=== PATIENT | male | born 1985 | race Caucasian/White ===

== ENCOUNTER 2017-10-13 10:39 | Emergency (ER) | payer OTHER ==
[2017-10-13] MEDS ORDERED: ACETAMINOPHEN 325 MG TABLET PO ONE (10:45)
[2017-10-13 10:50] VITALS: BP 122/80
--- NOTE | 2017-10-13 11:18 | RADIOLOGY REPORT (SQ) ---
EXAM DESCRIPTION: ANKLE RIGHT COMPLETE COMPLETED DATE/TIME: 10/13/2017 11:10 am REASON FOR STUDY: injury COMPARISON: 10/23/2014 NUMBER OF VIEWS: Three views. TECHNIQUE: AP, lateral, and oblique radiographic images acquired of the right ankle. LIMITATIONS: None. FINDINGS: MINERALIZATION: Normal. BONES: No acute fracture or dislocation. No worrisome bone lesions. JOINTS: No effusions. SOFT TISSUES: There is soft tissue swelling laterally. OTHER: No other significant finding. IMPRESSION: Soft tissue swelling laterally. No fracture. TECHNICAL DOCUMENTATION: JOB ID: [id number] [employer]- All Rights Reserved Reading location - IP/workstation name: [facility]
[2017-10-13] MEDS ORDERED: IBUPROFEN 800 MG TABLET PO ONE (11:35)
--- NOTE | 2017-10-13 11:35 | ER Document Report ---
ED Extremity Problem, Lower - General Chief Complaint: Ankle Injury Stated Complaint: ANKLE INJURY Time Seen by Provider: 10/13/17 11:17 Mode of Arrival: Wheelchair Information source: Patient Notes: 32-year-old male presented to ED for complaint of right ankle injury. He states he was jumping off a dump truck yesterday when he rolled his ankle outward. He states she has been elevating and icing it and taken Tylenol with no relief. He states he has not been able to bear weight on this foot. He states he has to hop to get around. Patient had a Eloy wrap on when he came into the emergency room. TRAVEL OUTSIDE OF THE [place] IN LAST 30 DAYS: No - HPI Patient complains to provider of: Injury, Pain, Swelling Location: Ankle - Right Occurred: Yesterday Where: Outdoors, Public place Onset/Duration: Sudden, Persistent Quality of pain: Sharp, Throbbing Severity: Moderate Pain Level: 4 Context: Wearing shoes Recent injury: Yes Associated symptoms: Painful ambulation, Unable to bear weight Exacerbated by: Hanging down, Movement, Walking Relieved by: Elevation, Ice, Rest - Related Data Allergies/Adverse Reactions: amoxicillin [Amoxicillin] Allergy (Verified 10/13/17 10:42) diphenhydramine HCl [From Benadryl] Allergy (Verified 10/13/17 10:42) Past Medical History - General Information source: Patient - Social History Smoking Status: Never Smoker Chew tobacco use (# tins/day): No Frequency of alcohol use: None Drug Abuse: None Family History: DM, Hypertension, Malignancy Patient has suicidal ideation: No Patient has homicidal ideation: No - Past Medical History Cardiac Medical History: Reports: None Pulmonary Medical History: Reports: None EENT Medical History: Reports: None Neurological Medical History: Reports: None Endocrine Medical History: Reports: None Renal/ Medical History: Reports: None Malignancy Medical History: Reports None GI Medical History: Reports: Hx Gastroesophageal Reflux Disease, Hx Ulcer Musculoskeletal Medical History: Reports None Skin Medical History: Reports Hx Cellulitis - Abscesses in the past Psychiatric Medical History: Reports: Hx Attention Deficit Hyperactivity Disorder, Hx Depression Traumatic Medical History: Reports: None Infectious Medical History: Reports: None Past Surgical History: Reports: Hx Abdominal Surgery - L inguinal herniorrhaphy , Hx Inguinal Hernia, Hx Orthopedic Surgery - chin - Immunizations Immunizations up to date: Yes Hx Diphtheria, Pertussis, Tetanus Vaccination: Yes Review of Systems - Review of Systems Constitutional: No symptoms reported EENT: No symptoms reported Cardiovascular: No symptoms reported Respiratory: No symptoms reported Gastrointestinal: No symptoms reported Genitourinary: No symptoms reported Male Genitourinary: No symptoms reported Musculoskeletal: Ankle swelling - Pain swelling Skin: No symptoms reported Hematologic/Lymphatic: No symptoms reported Neurological/Psychological: No symptoms reported -: Yes All other systems reviewed and negative Physical Exam - Vital signs Vitals: Temp Pulse Resp BP Pulse Ox 98.9 F 70 16 122/80 97 10/13/17 10:48 10/13/17 10:48 10/13/17 10:48 10/13/17 10:48 10/13/17 10:48 Interpretation: Normal - General General appearance: Appears well, Alert - HEENT Head: Normocephalic, Atraumatic Eyes: Normal Pupils: PERRL - Respiratory Respiratory status: No respiratory distress Chest status: Nontender Breath sounds: Normal Chest palpation: Normal - Cardiovascular Rhythm: Regular Heart sounds: Normal auscultation Murmur: No - Abdominal Inspection: Normal Distension: No distension Bowel sounds: Normal Tenderness: Nontender Organomegaly: No organomegaly - Back Back: Normal, Nontender - Extremities General upper extremity: Normal inspection, Nontender, Normal color, Normal ROM , Normal temperature General lower extremity: Normal temperature. No: Ina's sign Ankle: Tender, Ecchymosis, Edema, Unable to bear weight. No: Abrasion, Deformity, Instability, Laceration, Limited ROM, Positive Reyes's test Foot: Normal, Nontender - Neurological Neuro grossly intact: Yes Cognition: Normal Orientation: AAOx4 [place] Coma Scale Eye Opening: Spontaneous Wilfred Coma Scale Verbal: Oriented Wilfred Coma Scale Motor: Obeys Commands [place] Coma Scale Total: 15 Speech: Normal Motor strength normal: LUE, RUE, LLE, RLE Sensory: Normal - Psychological Associated symptoms: Normal affect, Normal mood - Skin Skin Temperature: Warm Skin Moisture: Dry Skin Color: Normal Course - Re-evaluation Re-evalutation: 10/13/17 12:17 Eloy wrap was removed ankle was examined. Lateral and medial aspect of ankle is very tender to touch and swelling noted. Mild edema to the foot but no tenderness to palpation. X-ray was negative for any bony deformities. X-ray was discussed with patient and written report given to patient. Eloy wrap was reapplied to the ankle in a [id number] and stirrup splint was applied. Patient was provided with crutches and instructed to follow-up with orthopedics. Patient was treated with ibuprofen and given instructions on elevation and ice of the ankle. - Vital Signs Vital signs: Temp Pulse Resp BP Pulse Ox 98.9 F 70 16 122/80 97 10/13/17 10:48 10/13/17 10:48 10/13/17 10:48 10/13/17 10:48 10/13/17 10:48 - Diagnostic Test Radiology reviewed: Image reviewed, Reports reviewed Discharge - Discharge Clinical Impression: Right ankle sprain Qualifiers: Encounter type: initial encounter Involved ligament of ankle: unspecified ligament Qualified Code(s): S93.401A - Sprain of unspecified ligament of right ankle, initial encounter Condition: Stable Disposition: HOME, SELF-CARE Additional Instructions: SPRAINED ANKLE: Your sprained ankle results from stretching or tearing of the ligaments which support the ankle. This usually results from twisting the foot inward and under. The ligaments will require time and protection in order to heal properly. Many ankle sprains are quite disabling, and should be taken seriously. The usual treatment for an ankle sprain is cold packs; protection with tape , splints, or wraps; elevation; and staying off the ankle for at least a day. As the ankle improves, you can walk IF it's not painful to bear weight. Sports are best postponed until healing is complete. More serious sprains usually require strengthening exercises after early healing. Your physician has assessed the seriousness of the ligament injury to your ankle. However, the treatment may change, depending on how your ankle progresses. If further exams were recommended, it is important that you follow through. Call the doctor if your foot becomes numb, painful, or severely swollen. ANKLE STIRRUP SPLINT: You are to use an ankle brace called a stirrup splint. This type of brace allows you to place greater stresses on the ankle without risk of re-injury, and is often used for more severe ankle injuries such as avulsion fractures and ligament ruptures. The splint can be worn over a sock or tape. For proper support, wear the splint with a shoe over it. It's important that the splint fit properly. Adjust the heel tension, if needed. If your splint has air bladders, peel back the bottom of each air bladder, then move the Velcro attachment of the heel strap up or down. Air bladder pressure can be adjusted by pulling up the valve at the top, threading the air tube down into the main bladder, then blowing air into the bladder or squeezing it out. The two sides of the stirrup can be moved forward or back on your ankle by changing the attachment of the main straps. If you are unable to use the ankle comfortably in the splint, return for re -evaluation. ELOY WRAP: A compression dressing (eloy wrap) has been placed. This helps hold the area still. It limits swelling and internal bleeding. The wrap should be comfortably snug -- not tight. You should feel a sense of pressure, but not severe pain under the wrap. Unless the physician tells you otherwise, you can adjust the wrap for comfort. If the wrap causes symptoms suggesting it's too tight -- uncomfortable pressure, swelling or discoloration beyond the wrap, numbness, or severe pain - - you must loosen the wrap. If these symptoms don't resolve promptly, return for re-evaluation. USE OF CRUTCHES: The doctor has recommended that you not bear weight at this time. You will need to use crutches. Adjust the crutches so the tops come to about two inches under the armpit while you are standing upright. Use your hands -- not your armpits -- to support your weight. To get into a chair, support yourself with one crutch on the injured side. Hold the chair with the other hand, then lower yourself while putting all your weight on the good leg. Going up stairs is `good leg up, step up, then bring up crutches and bad leg.' Down stairs is `bad leg and crutches down, then bring good leg down.' If you develop numbness or swelling in an arm or hand, you are using the crutches incorrectly. Return if you are having any problems with the crutches. ICE & ELEVATION: Apply ice packs frequently against the painful area. Many different schedules are recommended, such as "20 minutes on, 20 minutes off" or "one hour ice, two hours rest." If you need to work, you may need to go longer between ice treatments. You should plan to have the area ice packed AT LEAST one- fourth of the time. The ice should be applied over the wrap, tape, or splint, or over a layer of cloth -- not directly against the skin. Some ice bags have a built-in cloth and can be put directly on the skin. Your injured part should be elevated as much as possible over the next 48 hours. Try to keep the injury above the level of the heart. Avoid use of the injured area. Elevation and rest will decrease the swelling. USE OF [id number] IBUPROFEN: Ibuprofen (Advil, Nuprin, Medipren, Motrin IB) is a medication for fever and pain control. In addition, it has anti- inflammatory effects which may be beneficial, especially in the treatment of injuries. It's best to take ibuprofen with food. Persons with ulcer disease or allergy to aspirin should notify their physician of this before taking ibuprofen. Ibuprofen can be given every four to six hours, for a total of four doses daily. Age Pain or fever dose Antiinflammatory dose 6-8 yr 200 mg (1 tab) 200 mg (1 tab) 9-11 yr 200 mg (1 tab) 200-400 mg (1-2 tab) 11-14 yr 200-400 mg (1-2 tab) 400 mg (2 tab) 15-adult 400 mg (2 tab) 600 mg (3 tab) FOLLOW-UP CARE: If you have been referred to a physician for follow-up care, call the physician s office for an appointment as you were instructed or within the next two days. If you experience worsening or a significant change in your symptoms, notify the physician immediately or return to the Emergency Department at any time for re-evaluation. Forms: Return to Work Referrals: KIMBERLY GREEN MD [ACTIVE STAFF] - Follow up as needed
== END 2017-10-13 11:48 | disposition home or self-care (01) ==
LOC: ER 10:39
DX: S93.401A Sprain of unspecified ligament of right ankle, initial encounter (principal); X50.1XXA Overexertion from prolonged static or awkward postures, initial encounter
CPT/HCPCS: 99283; 73610; L1902

== ENCOUNTER 2017-12-28 12:42 | Emergency (ER) | payer SELFPAY ==
[2017-12-28 13:15] VITALS: BP 102/60
[2017-12-28] MEDS ORDERED: LIDOCAINE 1% INJ-PF (10 MG/ML) 30 ML SDV INJ ONE (14:17)
--- NOTE | 2017-12-28 14:19 | ER Document Report ---
ED Medical Screen (RME) - General Chief Complaint: Abscess Stated Complaint: POSSIBLE ABSCESS Time Seen by Provider: 12/28/17 14:14 Notes: 32 years old male presents today with left perineal abscess, with swelling redness and tenderness. TRAVEL OUTSIDE OF THE [place] IN LAST 30 DAYS: No - Related Data Allergies/Adverse Reactions: amoxicillin [Amoxicillin] Allergy (Verified 12/28/17 13:08) diphenhydramine HCl [From Benadryl] Allergy (Verified 12/28/17 13:08) Past Medical History - Social History Chew tobacco use (# tins/day): No Frequency of alcohol use: None Drug Abuse: None Renal/ Medical History: Denies: Hx Peritoneal Dialysis GI Medical History: Reports: Hx Gastroesophageal Reflux Disease, Hx Ulcer Skin Medical History: Reports Hx Cellulitis - Abscesses in the past Psychiatric Medical History: Reports: Hx Attention Deficit Hyperactivity Disorder, Hx Depression Past Surgical History: Reports: Hx Abdominal Surgery - L inguinal herniorrhaphy , Hx Inguinal Hernia, Hx Orthopedic Surgery - chin - Immunizations Immunizations up to date: Yes Hx Diphtheria, Pertussis, Tetanus Vaccination: Yes Physical Exam - Vital signs Vitals: Temp Pulse Resp BP Pulse Ox 99.2 F 76 18 102/60 100 12/28/17 13:12 12/28/17 13:12 12/28/17 13:12 12/28/17 13:12 12/28/17 13:12 Course - Vital Signs Vital signs: Temp Pulse Resp BP Pulse Ox 99.2 F 76 18 102/60 100 12/28/17 13:12 12/28/17 13:12 12/28/17 13:12 12/28/17 13:12 12/28/17 13:12
--- NOTE | 2017-12-28 15:31 | ER Document Report ---
ED General - General Chief Complaint: Abscess Stated Complaint: POSSIBLE ABSCESS Time Seen by Provider: 12/28/17 14:14 Mode of Arrival: Ambulatory Information source: Patient Notes: 32-year-old male presents to the emergency department with complaints of an abscess to his left buttock x 2 weeks. Patient states that he has had abscesses in this area before. Patient states that they require drainage and antibiotics. Patient denies any fever or chills. Patient denies a history of MRSA. Denies abdominal pain, nausea, vomiting, diarrhea, constipation, testicular pain. TRAVEL OUTSIDE OF THE [place] IN LAST 30 DAYS: No - HPI Onset: Other - 2 weeks Onset/Duration: Gradual, Persistent Quality of pain: Achy, Pressure Associated symptoms: None Exacerbated by: Denies Relieved by: Denies Similar symptoms previously: Yes Recently seen / treated by doctor: No - Related Data Allergies/Adverse Reactions: amoxicillin [Amoxicillin] Allergy (Verified 12/28/17 13:08) diphenhydramine HCl [From Benadryl] Allergy (Verified 12/28/17 13:08) Past Medical History - General Information source: Patient - Social History Smoking Status: Current Some Day Smoker Chew tobacco use (# tins/day): No Frequency of alcohol use: None Drug Abuse: None Family History: DM, Hypertension, Malignancy Patient has suicidal ideation: No Patient has homicidal ideation: No Renal/ Medical History: Denies: Hx Peritoneal Dialysis GI Medical History: Reports: Hx Gastroesophageal Reflux Disease, Hx Ulcer Skin Medical History: Reports Hx Cellulitis - Abscesses in the past Psychiatric Medical History: Reports: Hx Attention Deficit Hyperactivity Disorder, Hx Depression Past Surgical History: Reports: Hx Abdominal Surgery - L inguinal herniorrhaphy , Hx Inguinal Hernia, Hx Orthopedic Surgery - chin - Immunizations Immunizations up to date: Yes Hx Diphtheria, Pertussis, Tetanus Vaccination: Yes Review of Systems - Review of Systems Constitutional: No symptoms reported EENT: No symptoms reported Cardiovascular: No symptoms reported Respiratory: No symptoms reported Gastrointestinal: No symptoms reported Genitourinary: No symptoms reported Male Genitourinary: No symptoms reported Musculoskeletal: No symptoms reported Skin: Lesions Hematologic/Lymphatic: No symptoms reported Neurological/Psychological: No symptoms reported -: Yes All other systems reviewed and negative Physical Exam - Vital signs Vitals: Temp Pulse Resp BP Pulse Ox 99.2 F 76 18 102/60 100 12/28/17 13:12 12/28/17 13:12 12/28/17 13:12 12/28/17 13:12 12/28/17 13:12 - Notes Notes: PHYSICAL EXAMINATION: GENERAL: Well-appearing, well-nourished and in no acute distress. HEAD: Atraumatic, normocephalic. EYES: Pupils equal round and reactive to light, extraocular movements intact, sclera anicteric, conjunctiva are normal. ENT: Nares patent, oropharynx clear without exudates. Moist mucous membranes. NECK: Normal range of motion, supple without lymphadenopathy LUNGS: Breath sounds clear to auscultation bilaterally and equal. No wheezes rales or rhonchi. HEART: Regular rate and rhythm without murmurs ABDOMEN: Soft, nontender, nondistended abdomen. No guarding, no rebound. Normal active bowel sounds Buttock: Perianal abscess to the 7 oclock position. + fluctuance. No erythema appreciated. Musculoskeletal: Normal range of motion, no pitting or edema. No cyanosis. NEUROLOGICAL: Cranial nerves grossly intact. Normal speech, normal gait. Normal sensory, motor exams PSYCH: Normal mood, normal affect. SKIN: Warm, Dry, normal turgor, no rashes or lesions noted. Course - Re-evaluation Re-evalutation: 12/28/17 16:05 Area of fluctuance appreciated at the 7 o'clock position. Incision and drainage was performed. Only blood was obtained. No purulent material. I will start the patient on antibiotics. I'll give him a prescription for bactrim and norco. I will provide him with surgical follow-up. I instructed the patient to take the medication as directed, to follow-up as directed, and to return for worsening symptoms including fever, chills, enlargement of the abscess. Patient is agreeable to plan of care. 12/28/17 23:08 - Vital Signs Vital signs: Temp Pulse Resp BP Pulse Ox 99.2 F 76 18 102/60 100 12/28/17 13:12 12/28/17 13:12 12/28/17 13:12 12/28/17 13:12 12/28/17 13:12 Procedures - Incision and Drainage Right Buttock Time completed: 16:00 Type: Simple Anesthetic type: 1% Lidocaine mL's of anesthetic: 4 Blade size: 11 I&D procedure: Chlorprep applied Incision Method: Incision made by scalpel Amount/type of drainage: 1 Notes: 12/28/17 16:04 Blood Discharge - Discharge Clinical Impression: Perianal abscess Condition: Good Disposition: HOME, SELF-CARE Instructions: Abscess ([facility]), Oral Narcotic Medication ([facility]), Post Incision and Drainage, Trimethoprim-Sulfa ([facility]) Prescriptions: Hydrocodone/Acetaminophen [[place] 5-325 Tablet] 1 each PO Q4 #10 tablet Sulfamethoxazole/Trimethoprim [Bactrim Ds Tablet] 1 each PO BID #14 tablet Referrals: SKYLER ALVAREZ MD [ACTIVE STAFF] - Follow up as needed
== END 2017-12-28 16:32 | disposition home or self-care (01) ==
LOC: ER 12:42
DX: K61.0 Anal abscess (principal); F17.200 Nicotine dependence, unspecified, uncomplicated; Z88.0 Allergy status to penicillin
CPT/HCPCS: 99283

== ENCOUNTER 2018-01-01 06:57 | Observation (INO) | payer OTHER ==
[2018-01-01] MEDS ORDERED: METRONIDAZOLE 500 MG/NS RTU 500 MG/100 ML RTUPB IV ONE (08:10)
[2018-01-01] MEDS ORDERED: CIPROFLOXACIN 400 MG/D5W RTU 400 MG/200 ML RTUPB IV ONE (08:14)
--- NOTE | 2018-01-01 08:18 | ER Document Report ---
ED General - General Chief Complaint: Cyst Stated Complaint: POSSIBLE CYST Time Seen by Provider: 01/01/18 07:19 TRAVEL OUTSIDE OF THE [place] IN LAST 30 DAYS: No - HPI Notes: Patient is a 32-year-old male no significant past medical history who presents to the ED complaining of ongoing/worsening cyst/abscess to his anal area over the last week. Patient states that he was here 4 days ago and had an incision and drainage performed and was placed on Bactrim, but symptoms have worsened. He is still able to eat and drink without any difficulties. He is urinating normally. Patient states it does hurt to have a bowel movement because of the abscess. Denies IV drug abuse. Patient does admit to smoking. Denies any headache, fever, URI, sore throat, chest pain, palpitations, syncope, cough, shortness of breath, wheeze, dyspnea, abdominal pain, nausea/vomiting/diarrhea, urinary retention, dysuria, hematuria. - Related Data Allergies/Adverse Reactions: amoxicillin [Amoxicillin] Allergy (Verified 12/28/17 13:08) diphenhydramine HCl [From Benadryl] Allergy (Verified 12/28/17 13:08) Past Medical History - Social History Smoking Status: Current Every Day Smoker Family History: DM, Hypertension, Malignancy Patient has suicidal ideation: No Patient has homicidal ideation: No Renal/ Medical History: Denies: Hx Peritoneal Dialysis GI Medical History: Reports: Hx Gastroesophageal Reflux Disease, Hx Ulcer Skin Medical History: Reports Hx Cellulitis - Abscesses in the past Psychiatric Medical History: Reports: Hx Attention Deficit Hyperactivity Disorder, Hx Depression Past Surgical History: Reports: Hx Abdominal Surgery - L inguinal herniorrhaphy , Hx Inguinal Hernia, Hx Orthopedic Surgery - chin - Immunizations Immunizations up to date: Yes Hx Diphtheria, Pertussis, Tetanus Vaccination: Yes Review of Systems - Review of Systems -: Yes All other systems reviewed and negative Physical Exam - Vital signs Vitals: Temp Pulse Resp BP Pulse Ox 97.6 F 81 18 120/92 H 100 01/01/18 06:59 01/01/18 06:59 01/01/18 06:59 01/01/18 06:59 01/01/18 06:59 - Notes Notes: PHYSICAL EXAMINATION: GENERAL: Well-appearing, well-nourished and in no acute distress. HEAD: Atraumatic, normocephalic. EYES: Pupils equal round and reactive to light, extraocular movements intact, sclera anicteric, conjunctiva are normal. ENT: Nares patent and without discharge. oropharynx clear without exudates. No tonsilar hypertrophy or erythema. Moist mucous membranes. NECK: Normal range of motion, supple without lymphadenopathy LUNGS: Breath sounds clear to auscultation bilaterally and equal. No wheezes rales or rhonchi. HEART: Regular rate and rhythm without murmurs, rubs, gallops. ABDOMEN: Soft, nontender, nondistended abdomen. No guarding, no rebound. No masses appreciated. Normal bowel sounds present. No CVA tenderness bilaterally. Rectal: + perirectal abscess. + fluctuance, erythema, tenderness. No streaks. Musculoskeletal: FROM to passive/active. Strength 5+/5. Extremities: No cyanosis, clubbing, or edema b/l. Peripheral pulses 2+. Capillary refill less than 3 seconds. NEUROLOGICAL: Normal speech, normal gait. PSYCH: Normal mood, normal affect. SKIN: see above. Course - Re-evaluation Re-evalutation: 01/01/18 08:21 Patient is an afebrile, well hydrated with 32-year-old male who presents to the ED with a perirectal abscess. Vitals are acceptable. I did call and discuss with Dr. Hoskins, general surgeon, who will take the patient to the operating room. IV antibiotics were ordered along with fluids and CBC. No further labs or imaging warranted at this time per surgeon. Patient has been n.p.o. for solid food since yesterday afternoon at 430 and his last p.o. intake of water was this morning at 630. Patient in agreement with plan. - Vital Signs Vital signs: Temp Pulse Resp BP Pulse Ox 97.6 F 81 18 120/92 H 100 01/01/18 06:59 01/01/18 06:59 01/01/18 06:59 01/01/18 06:59 01/01/18 06:59 Discharge - Discharge Clinical Impression: Perirectal abscess Condition: Stable Disposition: ADMITTED INPATIENT Admitting Provider: Surgicalist - Dr. Hoskins Unit Admitted: Surgical Floor
[2018-01-01] MEDS ORDERED: NORMAL SALINE 1000 ML 1,000 ML IV ONE (08:21)
[2018-01-01] MEDS ORDERED: NORMAL SALINE 1000 ML 1,000 ML IV PRN (08:22)
[2018-01-01 08:43] LABS: ABSOLUTE EOSINOPHILS # (AUTO) 0.3 10^3/uL (0.0-0.6); ABSOLUTE NEUT (AUTO) 7.6 10^3/uL (1.7-8.2); BASOPHILS % (AUTO) 0.4 % (0-2); EOSINOPHILS % (AUTO) 2.5 % (0-6); HEMATOCRIT 53.2 % (37.9-51.0); HEMOGLOBIN 18.3 g/dL (13.5-17.0); LYMPHOCYTES % (AUTO) 18.8 % (13-45); MEAN CORPUSCULAR HEMOGLOBIN 30.2 pg (27.0-33.4); MEAN CORPUSCULAR HGB CONC 34.4 g/dL (32.0-36.0); MEAN CORPUSCULAR VOLUME 88 fl (80-97); PLATELET COUNT 259 10^3/uL (150-450); RED BLOOD COUNT 6.06 10^6/uL (4.35-5.55); RED CELL DISTRIBUTION WIDTH 14.9 % (11.5-14.0); SEGMENTED NEUTROPHILS % (AUTO) 69.3 % (42-78); TOTAL CELLS COUNTED % (AUTO) 100 %; WHITE BLOOD COUNT 10.9 10^3/uL (4.0-10.5)
--- NOTE | 2018-01-01 09:03 | PDOC H&P ---
History of Present Illness Admission Date/PCP: 01/01/18 08:23 Patient complains of: Left buttock pain History of Present Illness: AQUILES LINN is a 32 year old male Who presents to the emergency department [facility] for the second time in 4 days complaining of left buttock pain. When he was seen here on 28 December, he was diagnosed with a perianal abscess and underwent limited attempt at incision and drainage by the emergency department staff. Patient was given p.o. antibiotics, p.o. pain medication and sent home. He presents back to the emergency department complaining of persisting pain, difficulty voiding and having a bowel movement, feeling poorly. He is reassessed and found to have a persisting perianal abscess. Surgery was consulted and he is advised admission for definitive management. Patient has a history of contralateral buttock abscess managed with I&D in the past. Past Medical History Past Medical History: Perianal abscess Pulmonary Medical History: Reports: None GI Medical History: Reports: Gastroesophageal Reflux Disease Psychiatric Medical History: Reports: Attention Deficit Hyperactivity Disorder, Depression Past Surgical History Past Surgical History: I&D perianal abscess Past Surgical History: Reports: Orthopedic Surgery - [facility] Social History Smoking Status: Current Every Day Smoker Hx Recreational Drug Use: No Hx Prescription Drug Abuse: No Family History Family History: DM, Hypertension, Malignancy Parental Family History Reviewed: Yes Children Family History Reviewed: Yes Sibling(s) Family History Reviewed.: Yes Medication/Allergy Home Medications: Methylphenidate HCl [Ritalin] 7.5 mg PO BID 06/14/12 Clonidine HCl [Catapres 0.1 mg Tablet] 0.1 mg PO QHS 01/11/13 Melatonin 5 mg PO QHS 01/11/13 Sulfamethoxazole/Trimethoprim [Sulfamethoxazole-Tmp Ss Tablet] 1 each PO BID 10 Days tablet 01/11/13 Hydrocodone Bit/Homatropine [Hycodan Syrup 5-1.5 mg/ 5 ml Ud Cup] 5 ml PO ASDIR PRN #100 ml 02/04/13 Nystatin/Triamcin [Mycolog-II Cream] 1 applic TP TID #1 tube 05/07/15 Hydrocodone/Acetaminophen [[place] 5-325 mg Tablet] 1 tab PO Q6HP PRN #14 tablet 06/19/15 Sulfamethoxazole/Trimethoprim [Septra-Ds 800-160 mg Tablet] 1 tab PO BID #20 tablet 06/19/15 Hydrocodone/Acetaminophen [[place] 5-325 Tablet] 1 each PO Q4 #10 tablet 12/28/17 Sulfamethoxazole/Trimethoprim [Bactrim Ds Tablet] 1 each PO BID #14 tablet 12/28 Allergies/Adverse Reactions: amoxicillin [Amoxicillin] Allergy (Verified 12/28/17 13:08) diphenhydramine HCl [From Benadryl] Allergy (Verified 12/28/17 13:08) Review of Systems Constitutional: PRESENT: as per HPI Eyes: ABSENT: visual disturbances Ears: ABSENT: hearing changes Cardiovascular: ABSENT: chest pain, dyspnea on exertion, edema, orthropnea, palpitations Gastrointestinal: ABSENT: abdominal pain, constipation, diarrhea, hematemesis, hematochezia, nausea, vomiting Genitourinary: PRESENT: difficulty urinating. ABSENT: dysuria, hematuria Musculoskeletal: ABSENT: joint swelling Integumentary: ABSENT: rash, wounds Neurological: ABSENT: abnormal gait, abnormal speech, confusion, dizziness, focal weakness, syncope Psychiatric: ABSENT: anxiety, depression, homidical ideation, suicidal ideation Physical Exam Vital Signs: Temp Pulse Resp BP Pulse Ox 97.6 F 81 18 120/92 H 100 01/01/18 06:59 01/01/18 06:59 01/01/18 06:59 01/01/18 06:59 01/01/18 06:59 General appearance: PRESENT: no acute distress Head exam: PRESENT: normocephalic Eye exam: PRESENT: EOMI Mouth exam: PRESENT: dry mucosa, laceration Neck exam: PRESENT: full ROM Respiratory exam: PRESENT: clear to auscultation robinson Cardiovascular exam: PRESENT: RRR Pulses: PRESENT: normal carotid pulses, normal radial pulses, normal femoral pulses GI/Abdominal exam: PRESENT: soft Rectal exam: PRESENT: other - Patient examined in the right lateral decubitus position. There is an acute perianal abscess at the patient's left lateral position. The area is very tender swollen, with no active drainage. Evidence of previous I&D Psychiatric exam: PRESENT: appropriate affect Results Laboratory Results: 01/01/18 08:25 01/01/18 08:25 WBC 10.9 H RBC 6.06 H Hgb 18.3 H Hct 53.2 H MCV 88 MCH 30.2 MCHC 34.4 RDW 14.9 H Plt Count 259 Seg Neutrophils % 69.3 Lymphocytes % 18.8 Monocytes % 9.0 Eosinophils % 2.5 Basophils % 0.4 Absolute Neutrophils 7.6 Absolute Lymphocytes 2.0 Absolute Monocytes 1.0 Absolute Eosinophils 0.3 Absolute Basophils 0.0 Assessment & Plan - Diagnosis (1) Perianal abscess Is this a current diagnosis for this admission?: Yes Plan: Impression: Acute left lateral perianal abscess refractory to outpatient antibiotics, and previous limited incision and drainage in the emergency department. Needs operative examination under anesthesia, operative drainage Recommendations: 1. Admit, n.p.o., IV fluids, IV antibiotics 2. Visit to the operating room for examination of under anesthesia, drainage procedure, possible seton placement, 1 hour, [facility], spinal versus general anesthesia I explained to the patient he may require more than one procedure to manage and the perianal abscess, possible fistula in anal (2) Smoker Is this a current diagnosis for this admission?: Yes - Time Time Spent: 30 to 50 Minutes Critical Time spent with patient: Less than 15 minutes Medications reviewed and adjusted accordingly: Yes Anticipated discharge: Home - Inpatient Certification Based on my medical assessment, after consideration of the patient's comorbidities, presenting symptoms, or acuity I expect that the services needed warrant INPATIENT care.: Yes I certify that my determination is in accordance with my understanding of Medicare's requirements for reasonable and necessary INPATIENT services [42 CFR 412.3e].: Yes Medical Necessity: Need For IV Fluids, Need for Pain Control, Need for IV Antibiotics
[2018-01-01] MEDS ORDERED: ONDANSETRON HCL INJ/PF 4 MG/2 ML SDV IV PRN ×2 (09:04→10:39)
[2018-01-01] MEDS ORDERED: SUCCINYLCHOLINE CHLORIDE INJ 200 MG/10 ML VIAL ONE (09:40)
[2018-01-01] MEDS ORDERED: FENTANYL CITRATE INJ/PF 100 MCG/2 ML AMPUL ONE ×2 (10:03→10:34)
[2018-01-01] MEDS ORDERED: MIDAZOLAM 2 MG/2 ML INJ ONE ×2 (10:06→10:34)
[2018-01-01] MEDS ORDERED: ONDANSETRON HCL INJ/PF 4 MG/2 ML SDV ONE (10:34)
[2018-01-01] MEDS ORDERED: DEXAMETHASONE SOD PHOSPHATE INJ 4 MG/1 ML VIAL ONE (10:34)
[2018-01-01] MEDS ORDERED: PROPOFOL INJ 200 MG/20 ML VIAL IV ONE (10:34)
[2018-01-01] MEDS ORDERED: FENTANYL CITRATE INJ/PF 100 MCG/2 ML AMPUL IV PRN ×3 (10:39)
[2018-01-01] MEDS ORDERED: DIPHENHYDRAMINE HCL 50 MG/ML VIAL IV PRN (10:39)
[2018-01-01] MEDS ORDERED: PROMETHAZINE HCL INJ 25 MG/1 ML VIAL IV PRN ×2 (10:39)
[2018-01-01] MEDS ORDERED: MORPHINE SULFATE 10 MG/ML INJ IV PRN (10:39)
[2018-01-01] MEDS ORDERED: MEPERIDINE HCL/PF INJ 25 MG/1 ML DISP.SYRIN IV PRN (10:39)
[2018-01-01] MEDS ORDERED: BUPIVACAINE HCL 0.5 % INJ/PF 30 ML SDV ONE (10:40)
[2018-01-01] MEDS ORDERED: KETOROLAC TROMETHAMINE INJ/PF 30 MG/1 ML SDV IV PRN (11:36)
--- NOTE | 2018-01-01 11:45 | Operative Report ---
Operative Report DATE OF SURGERY: 01/01/18 PREOPERATIVE DIAGNOSIS: Left lateral perianal abscess POSTOPERATIVE DIAGNOSIS: 2 perianal abscesses, one left lateral anterior position, and second right posterior lateral position with bilateral fistula in ano OPERATION: 1. Examination under anesthesia. 2. Drainage of acute left lateral anterior perianal abscess, with seton placement. 3. Excision and complete drainage consistent with fistulectomy of right posterior lateral chronic fistula in ano SURGEON: JOB OMDI ANESTHESIA: GA TISSUE REMOVED OR ALTERED: Fragments of fistula track and abscess all disposed of COMPLICATIONS: None ESTIMATED BLOOD LOSS: 15 cc INTRAOPERATIVE FINDINGS: See below PROCEDURE: The patient was taken to the preop holding area to the main operating room where general anesthesia was induced. The patient was placed from the gurney onto the operating table in prone jackknife position, buttocks spread, clean, hair clipped, then exposed widely and maintained open position with tape. The perineum and perianal tissue was prepped and draped in sterile fashion. Surgical plan surgical timeout conducted. The findings were significant for a left slightly anterior lateral acute perianal abscess approximately 5 cm from the anal verge. In addition there was a chronic abscess tract draining from the right posterior lateral position. This was a small site with some heaped up epithelium along the perimeter. By palpation there appeared to be a chronic fistula tract. The perianal tissue was anesthetized with quarter percent Marcaine. I then dilated up the anal rectal canal to admit to adult fingers. The bullet anoscope was inserted into the anal canal, careful inspection revealed the patient's right posterior fistula in anal tract based on palpation, as well as the left anterior lateral acute abscess. We drained and managed the lateral left-sided abscess first. Using a 10 blade, the abscess was opened, and a ellipse of skin removed approximately 2 x 2 cm. Underlying pus evacuated. The infection was fairly localized to the left anterior lateral quadrant. The infection came down to but did not appear to involve the muscle; however I did probe the recesses of the anterior lateral abscess cavity and there was communication with the anal canal right at the dentate line. This was a direct tract, and because of my concern for partial, superficial involvement of the external sphincter muscle, I placed a thin clarke loop and secured it in a loop fashion as a seton. The abscess cavity was felt to be sufficiently debrided. There was no tracking peripherally or laterally. We now called our attention to the chronic right posterior lateral site. I did not start a probe into it and it communicated with the anorectal canal right at the dentate line. However this tract was much more superficial. In in fact was chronic however so using a 15 blade, I excised the exit site including the skin from the abscess cavity, then dissected the entire tract all the way down superficial to the external sphincter muscle and then coming right down to the deep mucosa. At this point the tract snapped out, and I was left with the mucosa and, perianal skin, and some slightly deeper fibers possibly elements of the internal anal sphincter. As this was a male, and a posterior lateral position, I felt that filleting the entire tract open would be reasonable and so this was performed using electrocautery. We in fact then performed a fistulectomy. Any residual fibrous bands were excised, and this was a very clean superficial wound involving essentially none of the external sphincter elements. I felt the operation was complete. Additional local anesthetic was deployed in the perianal tissue, both wounds packed with half-inch iodoform packing. Patient tolerated procedure well, extubated, and taken to recovery room in stable condition.
[2018-01-01] MEDS: RINGERS SOLUTION,LACTATED 1,000 ML IV PRN (14:33)
[2018-01-01] MEDS: KETOROLAC TROMETHAMINE INJ/PF 30 MG/1 ML SDV IV PRN (14:37)
[2018-01-01] MEDS: DOCUSATE SODIUM 100 MG CAPSULE PO SCH (18:03)
[2018-01-01] MEDS: METRONIDAZOLE 500 MG/NS RTU 500 MG/100 ML RTUPB IV SCH ×2 (18:03→18:04)
[2018-01-01] MEDS: KETOROLAC TROMETHAMINE 10 MG TABLET PO PRN (20:42)
[2018-01-01] MEDS ORDERED: MORPHINE SULFATE 10 MG/ML INJ IV ONE (23:00)
[2018-01-02] MEDS: METRONIDAZOLE 500 MG/NS RTU 500 MG/100 ML RTUPB IV SCH ×3 (00:58→16:24)
[2018-01-02] MEDS: RINGERS SOLUTION,LACTATED 1,000 ML IV PRN ×2 (00:59→11:29)
[2018-01-02] MEDS: KETOROLAC TROMETHAMINE 10 MG TABLET PO PRN (06:55)
--- NOTE | 2018-01-02 08:34 | PDOC PROGRESS REPORT ---
Subjective Progress Note for:: 01/02/18 Subjective:: Patient complaining of pain; patient been at bedrest Reason For Visit: PERIANAL ABSCESS,ACUTE Physical Exam Vital Signs: Temp Pulse Resp BP Pulse Ox 98.0 F 85 16 102/62 96 01/02/18 07:00 01/02/18 07:00 01/02/18 07:00 01/02/18 07:00 01/02/18 07:00 Intake & Output 01/01/18 01/02/18 01/03/18 06:59 06:59 06:59 Intake Total 5732 Output Total 1808 Balance 3924 Weight 60.8 kg General appearance: PRESENT: mild distress Rectal exam: PRESENT: other - Patient rolled in the right lateral decubitus position left side up. Operative sites clean, dry; packing from both wounds removed much to the patient's dismay. Wounds left open. Results Laboratory Results: 01/01/18 08:25 01/01/18 08:25 WBC 10.9 H RBC 6.06 H Hgb 18.3 H Hct 53.2 H MCV 88 MCH 30.2 MCHC 34.4 RDW 14.9 H Plt Count 259 Seg Neutrophils % 69.3 Lymphocytes % 18.8 Monocytes % 9.0 Eosinophils % 2.5 Basophils % 0.4 Absolute Neutrophils 7.6 Absolute Lymphocytes 2.0 Absolute Monocytes 1.0 Absolute Eosinophils 0.3 Absolute Basophils 0.0 Assessment & Plan - Diagnosis (1) Perianal abscess Is this a current diagnosis for this admission?: Yes Plan: Impression: Postoperative day 1 status post exam under anesthesia, left fistulotomy with seton placement and right-sided fistulectomy doing well from a clinical standpoint Recommendations: 1. Get out of bed into the shower ambulating 2. Possibly home later today (2) Smoker Is this a current diagnosis for this admission?: Yes
[2018-01-02] MEDS ORDERED: MORPHINE SULFATE 10 MG/ML INJ IV ONE (08:35)
[2018-01-02] MEDS: DOCUSATE SODIUM 100 MG CAPSULE PO SCH ×2 (10:07→17:03)
[2018-01-02] MEDS: KETOROLAC TROMETHAMINE INJ/PF 30 MG/1 ML SDV IV PRN (14:37)
[2018-01-02 15:48] VITALS: BP 105/74
--- NOTE | 2018-01-02 20:17 | PDOC PROGRESS REPORT ---
Subjective Progress Note for:: 01/02/18 Subjective:: Feels well. Pain under good control. Had bowel movements. Reason For Visit: PERIANAL ABSCESS,ACUTE Physical Exam Vital Signs: Temp Pulse Resp BP Pulse Ox 97.4 F 77 20 105/74 99 01/02/18 15:00 01/02/18 15:00 01/02/18 15:00 01/02/18 15:00 01/02/18 15:00 Intake & Output 01/01/18 01/02/18 01/03/18 06:59 06:59 06:59 Intake Total 5832 2602 Output Total 1808 Balance 4024 2602 Weight 60.8 kg Rectal exam: PRESENT: other - Perianal region with minimal swelling. Clean. No erythema. Minimal drainage Results Laboratory Results: 01/01/18 08:25 Assessment & Plan - Diagnosis (1) Perianal abscess Is this a current diagnosis for this admission?: Yes Plan: With fistula status post fistulotomy and seton placement and drainage. Doing well. Will discharge patient home.
--- NOTE | 2018-01-03 06:36 | DISCHARGE SUMMARY E ---
Discharge Summary NAME: AQUILES LINN : 1985 AGE: 32Y ADMITTED: 01/01/2018 DISCHARGED: 01/02/2018 DISCHARGE DIAGNOSES: 1. Perianal abscess. 2. Bilateral fistula in ano. PROCEDURES PERFORMED DURING HOSPITALIZATION: 1. Examine under anesthesia with drainage of acute left lateral anterior perianal abscess with seton placement. 2. Excision and complete drainage consistent with fistulectomy of right posterior lateral chronic fistula in ano. All performed by Dr. Mac Hoskins on 01/01/2018. HOSPITAL COURSE: The patient underwent the above-mentioned surgery. He did well postoperatively. He had good pain control, he had bowel movements, and his wound looked good at the time of discharge. The patient is now being discharged to home in good condition. DISCHARGE INSTRUCTIONS: He is to stay active, but avoid strenuous activity. He is to follow up with Dr. Hoskins next week. I have asked him to stay out of work until the followup visit early next week. He is to do sitz baths or shower washing to his anal area after each bowel movement and once a day. DISCHARGE MEDICATIONS: 1. Flagyl 500 mg 1 p.o. t.i.d. for 2 more days. 2. Percocet 1 p.o. q. 4 hours p.r.n. pain; 12 pills were prescribed. 3. Colace 100 mg 1 p.o. b.i.d. DICTATING PHYSICIAN: MIKO ALVAREZ M.D. [id number] PHY#: [id number] ID: [id number] JOB#: [id number] ACCT: [id number] cc:Tonia NIEVES MD, M.D. E. [facility],
== END 2018-01-02 21:25 | disposition home or self-care (01) ==
LOC: ER 06:57 → INTOOBSV 08:23 → EH 08:23 → 4S 13:06
PROVIDERS: ATTEND Surgery
PROC: 0DBQ0ZZ Excision of Anus, Open Approach (ICD-10-PCS; principal; 2018-01-01 11:00)
DX: K61.0 Anal abscess (principal); F17.200 Nicotine dependence, unspecified, uncomplicated; R39.198 Other difficulties with micturition; Z98.890 Other specified postprocedural states
CPT/HCPCS: 99284; 36415; 87070; 87205; 85025; 87077; 87186; 46270; 46020; G0378 ×2; J2250; J3490 ×3; J1100; J3010; J1885 ×2; J2270 ×2; J0330; J2405; J7030; J7120 ×2; J2704; 902

== ENCOUNTER 2018-03-30 05:18 | Day surgery (SDC) | payer OTHER ==
[2018-03-27 11:46] LABS: HEMATOCRIT 50.1 % (37.9-51.0); HEMOGLOBIN 17.2 g/dL (13.5-17.0); MEAN CORPUSCULAR HEMOGLOBIN 30.7 pg (27.0-33.4); MEAN CORPUSCULAR HGB CONC 34.4 g/dL (32.0-36.0); MEAN CORPUSCULAR VOLUME 89 fl (80-97); PLATELET COUNT 201 10^3/uL (150-450); RED CELL DISTRIBUTION WIDTH 13.9 % (11.5-14.0)
[~2018-03-30 05:18] MED LIST: CIPROFLOXACIN 400 MG/D5W RTU 400 MG/200 ML RTUPB IV PRN; LACTATED RINGERS 1000 ML IV PRN; LIDOCAINE 0.5% INJ-PF (5 MG/ML) 50 ML SDV SUBCUT PRN
[2018-03-30] MEDS ORDERED: CIPROFLOXACIN 400 MG/D5W RTU 400 MG/200 ML RTUPB IV ONE (05:25)
[2018-03-30] MEDS ORDERED: FENTANYL CITRATE INJ/PF 100 MCG/2 ML AMPUL ONE (06:17)
[2018-03-30] MEDS ORDERED: LIDOCAINE 2% INJ-PF (100 MG/5 ML) SYRINGE ONE (06:17)
[2018-03-30] MEDS ORDERED: PROPOFOL INJ 200 MG/20 ML VIAL IV ONE (06:17)
[2018-03-30] MEDS ORDERED: MIDAZOLAM 2 MG/2 ML INJ ONE (06:17)
[2018-03-30] MEDS ORDERED: KETAMINE HCL INJ 500 MG/10 ML VIAL ONE (06:55)
[2018-03-30] MEDS ORDERED: LIDOCAINE 1%/EPINEPHRINE INJ 20 ML VIAL ONE ×2 (07:06→07:10)
[2018-03-30] MEDS ORDERED: LIDOCAINE 2% JELLY 5 ML TUBE ONE (07:06)
[2018-03-30] MEDS ORDERED: ONDANSETRON HCL INJ/PF 4 MG/2 ML SDV IV PRN (07:43)
[2018-03-30] MEDS ORDERED: MEPERIDINE HCL/PF INJ 25 MG/1 ML DISP.SYRIN IV PRN (07:43)
[2018-03-30] MEDS ORDERED: FENTANYL CITRATE INJ/PF 100 MCG/2 ML AMPUL IV PRN ×3 (07:43)
[2018-03-30] MEDS ORDERED: PROMETHAZINE HCL INJ 25 MG/1 ML VIAL IV PRN ×2 (07:43)
[2018-03-30] MEDS ORDERED: MORPHINE SULFATE 10 MG/ML INJ IV PRN (07:43)
[2018-03-30] MEDS ORDERED: DIPHENHYDRAMINE HCL 50 MG/ML VIAL IV PRN ×2 (07:43→08:26)
--- NOTE | 2018-03-30 07:48 | Discharge Summary ---
Discharge Summary (SDC) - Discharge Final Diagnosis: Fistula in ano left anterior lateral Date of Surgery: 03/30/18 Discharge Date: 03/30/18 Condition: Good Treatment or Instructions: Sitz baths daily; resume preoperative medications, diet, activity; return to [facility] in 1-2 weeks follow-up with Dr. Hoskins. Discharge Diet: As Tolerated Discharge Activity: Activity As Tolerated Home Care Assistance: None Needed Report the Following to Your Physician Immediately: Shortness of Breath, Increase in Pain, Fever over 101 Degrees
--- NOTE | 2018-03-30 07:52 | Operative Report ---
Operative Report DATE OF SURGERY: 03/30/18 PREOPERATIVE DIAGNOSIS: Chronic, residual fistula and a known left anterior lat eral position POSTOPERATIVE DIAGNOSIS: Same OPERATION: 1. Examination under anesthesia. 2. Completion fistulotomy left anterior lateral position with cauterization of tract SURGEON: JOB MODI ANESTHESIA: LMAC TISSUE REMOVED OR ALTERED: Residual of fibrous tissue from fistula tract COMPLICATIONS: None ESTIMATED BLOOD LOSS: Scant INTRAOPERATIVE FINDINGS: Below PROCEDURE: The patient was taken to the preop holding to the main operating room where LMAC anesthesia was induced. Placed in the prone jackknife position. Buttocks shaved, spread and taped widely. Surgical plan surgical timeout were conducted. Perianal examination revealed left anterior lateral seton in position, with a small sentinel pustule in the lateral aspect of the closing fistula tract. The perianal tissue was anesthetized with 1% lidocaine with epinephrine. The anal canal easily accepted 2 fingers. I used a medium hand-held anal retractor to gain exposure. We lifted up on the seton with hemostat, and divided the residual mucosal and skeletal muscle within the loop of the seton. The amount of muscle divided was minimal, perhaps 25% of the cross-sectional thickness. Once this was accomplished, we curetted the tract out with a medium size curette. The small sentinel pustule at the lateral aspect of the fistula tract was excised with 15 blade. We irrigated the wound several times, inspected the perianal tissue and confirmed there was no other pathology, cauterized any small losers and deemed the operation complete. Lidocaine on 4 x 4 applied to the open wound. Patient tolerated the procedure well, taken to the recovery room in stable condition.
[2018-03-30 16:13] VITALS: BP 126/71
== END 2018-03-30 10:35 | disposition home or self-care (01) ==
LOC: OROUT 05:18
PROVIDERS: ATTEND Surgery
DX: K60.3 Anal fistula (principal); Z09 Encounter for follow-up examination after completed treatment for conditions other than malignant neoplasm; Z88.8 Allergy status to other drugs, medicaments and biological substances; Z88.0 Allergy status to penicillin; F17.210 Nicotine dependence, cigarettes, uncomplicated; Z79.899 Other long term (current) drug therapy; Z87.11 Personal history of peptic ulcer disease; Z01.818 Encounter for other preprocedural examination
CPT/HCPCS: 36415; 85027; 46285; J2250; J3010; J3490 ×2; J2001; J2704; J0744; 902

== ENCOUNTER 2018-05-06 14:23 | Emergency (ER) | payer OTHER ==
[2018-05-06] MEDS ORDERED: NORMAL SALINE 1000 ML 1,000 ML IV ONE (15:25)
[2018-05-06] MEDS ORDERED: ONDANSETRON HCL INJ/PF 4 MG/2 ML SDV IV ONE (15:25)
--- NOTE | 2018-05-06 16:25 | ER Document Report ---
ED General - General Chief Complaint: Nausea/Vomiting Stated Complaint: VOMITING, DIZZY Time Seen by Provider: 05/06/18 15:19 TRAVEL OUTSIDE OF THE [place] IN LAST 30 DAYS: No - HPI Patient complains to provider of: Vomiting dizziness Notes: Patient coming in feeling unwellSince 8 AM this morning. Denies any alcohol abuse states he does smoke denies any recent travel or trauma. Patient otherwise states he feels cold and chills. Patient denies receiving flu shot this year. Denies any sick contacts recent travel denies any pain. Patient otherwise looks to be in no obvious distress upon my evaluation - Related Data Allergies/Adverse Reactions: amoxicillin [Amoxicillin] Allergy (Verified 05/06/18 14:24) Hives, Migraine diphenhydramine HCl [From Benadryl] Allergy (Verified 05/06/18 14:24) Hives, Migraine Past Medical History - Social History Smoking Status: Former Smoker Family History: DM, Hypertension, Malignancy Patient has suicidal ideation: No Patient has homicidal ideation: No - Past Medical History Cardiac Medical History: Denies: Hx Coronary Artery Disease, Hx Heart Attack, Hx Hypertension Pulmonary Medical History: Denies: Hx Asthma, Hx Bronchitis, Hx COPD, Hx Pneumonia Neurological Medical History: Denies: Hx Cerebrovascular Accident, Hx Seizures Renal/ Medical History: Denies: Hx Peritoneal Dialysis GI Medical History: Reports: Hx Gastroesophageal Reflux Disease, Hx Ulcer Musculoskeletal Medical History: Denies Hx Arthritis Skin Medical History: Reports Hx Cellulitis - Abscesses in the past Psychiatric Medical History: Reports: Hx Attention Deficit Hyperactivity Disorder, Hx Depression Past Surgical History: Reports: Hx Abdominal Surgery - L inguinal herniorrhaphy, Hx Inguinal Hernia, Hx Orthopedic Surgery - chin - Immunizations Immunizations up to date: Yes Hx Diphtheria, Pertussis, Tetanus Vaccination: No Review of Systems - Review of Systems Constitutional: No symptoms reported EENT: No symptoms reported Cardiovascular: No symptoms reported Respiratory: No symptoms reported Gastrointestinal: Nausea, Vomiting Genitourinary: No symptoms reported Male Genitourinary: No symptoms reported Musculoskeletal: No symptoms reported Skin: No symptoms reported Hematologic/Lymphatic: No symptoms reported Neurological/Psychological: No symptoms reported -: Yes All other systems reviewed and negative Physical Exam - Vital signs Vitals: Temp Pulse Resp BP Pulse Ox 98.2 F 62 18 126/69 H 100 05/06/18 14:33 05/06/18 14:33 05/06/18 14:33 05/06/18 14:33 05/06/18 14:33 Interpretation: Normal - General General appearance: Appears well, Alert - HEENT Head: Normocephalic, Atraumatic Eyes: Normal Pupils: PERRL - Respiratory Respiratory status: No respiratory distress Chest status: Nontender Breath sounds: Normal Chest palpation: Normal - Cardiovascular Rhythm: Regular Heart sounds: Normal auscultation Murmur: No - Abdominal Inspection: Normal Distension: No distension Bowel sounds: Normal Tenderness: Nontender Organomegaly: No organomegaly - Back Back: Normal, Nontender - Extremities General upper extremity: Normal inspection, Nontender, Normal color, Normal ROM, Normal temperature General lower extremity: Normal inspection, Nontender, Normal color, Normal ROM, Normal temperature, Normal weight bearing. No: Ina's sign - Neurological Neuro grossly intact: Yes Cognition: Normal Orientation: AAOx4 [employer] Coma Scale Eye Opening: Spontaneous [employer] Coma Scale Verbal: Oriented Wilfred Coma Scale Motor: Obeys Commands [employer] Coma Scale Total: 15 Speech: Normal Motor strength normal: LUE, RUE, LLE, RLE Sensory: Normal - Psychological Associated symptoms: Normal affect, Normal mood - Skin Skin Temperature: Warm Skin Moisture: Dry Skin Color: Normal Course - Re-evaluation Re-evalutation: 05/06/18 16:22 The patient presents with nausea vomiting without signs of peritonitis or other life-threatening or serious etiology. The patient appears stable for discharge and has been instructed to return immediately if the symptoms worsen in any way, or in 8-12hr if not improved for re-evaluation. The patient has been instructed to return if the symptoms worsen or change in any way. - Vital Signs Vital signs: Temp Pulse Resp BP Pulse Ox 98.2 F 62 18 126/69 H 100 05/06/18 14:33 05/06/18 14:33 05/06/18 14:33 05/06/18 14:33 05/06/18 14:33 - Laboratory Result Diagrams: 05/06/18 13:45 Laboratory results interpreted by me: 05/06/18 13:45 Carbon Dioxide 20 L Glucose 74 L Calcium 10.4 H Discharge - Discharge Clinical Impression: Smoker Nausea & vomiting Qualifiers: Vomiting type: unspecified Vomiting Intractability: unspecified Qualified Code(s): R11.2 - Nausea with vomiting, unspecified Condition: Good Disposition: HOME, SELF-CARE Instructions: Clear Liquid Diet ([facility]), Gastritis ([facility]), Nausea or Vomiting, Nonspecific ([facility]) Additional Instructions: Your symptoms are likely due to a virus. However, it is important that you continue to monitor for any concerning symptoms including inability to tolerate oral fluids, less than 2 urinations in a 24 hour period, and lethargy Please continue to offer oral solutions such as Pedialyte, water, gatorade. It is okay if you do not want to eat over the next several days but it is important that they continue to drink fluids. You may also provide a medication such as ibuprofen (Motrin) or acetaminophen (Tylenol) per box instructions for fever. Please also follow-up with your doctor in the next several days. Please take the medications given to you as prescribed. You may use Zofran or Phenergan as needed for nausea and vomiting. Please follow a clear liquid diet for the next 24 hours and advance as tolerated. Prescriptions: Ondansetron [Zofran Odt 4 mg Tablet] 1 - 2 tab PO Q4H PRN #30 tab.rapdis PRN Reason: For Nausea/Vomiting Promethazine HCl [Phenergan 25 mg Tablet] 25 mg PO Q6 #30 tablet Forms: Return to Work
[2018-05-06 16:36] LABS: ALANINE AMINOTRANSFERASE 35 U/L (21-72); ALBUMIN 4.9 g/dL (3.5-5.0); ALKALINE PHOSPHATASE 78 U/L (38-126); ANION GAP 16 (5-19); ASPARTATE AMINO TRANSFERASE 38 U/L (17-59); BILIRUBIN,DIRECT 0.3 mg/dL (0.0-0.4); BLOOD UREA NITROGEN 18 mg/dL (7-20); CALCIUM 10.4 mg/dL (8.4-10.2); CARBON DIOXIDE 20 mmol/L (22-30); CHLORIDE 105 mmol/L (98-107); GLUCOSE 74 mg/dL (75-110); LIPASE 61.1 U/L (23-300); POTASSIUM 4.9 mmol/L (3.6-5.0); SODIUM 141.2 mmol/L (137-145); TOTAL PROTEIN 7.7 g/dL (6.3-8.2)
[2018-05-06 17:38] VITALS: BP 135/70
== END 2018-05-06 17:39 | disposition home or self-care (01) ==
LOC: ER 14:23
DX: R11.2 Nausea with vomiting, unspecified (principal); R68.83 Chills (without fever); Z87.891 Personal history of nicotine dependence; Z88.0 Allergy status to penicillin; Z88.8 Allergy status to other drugs, medicaments and biological substances
CPT/HCPCS: 99284; 96361; 96374; 36415; 83690; 80053; J2405; J7030

== ENCOUNTER 2018-07-21 03:34 | Emergency (ER) | payer OTHER ==
[2018-07-21] MEDS ORDERED: AZITHROMYCIN 250 MG TABLET PO ONE (06:46)
[2018-07-21] MEDS ORDERED: CEFTRIAXONE INJ 250 MG VIAL IM ONE (06:46)
[2018-07-21] MEDS ORDERED: LIDOCAINE 1% INJ-PF (10 MG/ML) 30 ML SDV INJ ONE (06:46)
--- NOTE | 2018-07-21 06:51 | ER Document Report ---
HPI - HPI Time Seen by Provider: 07/21/18 04:56 Pain Level: Denies Context: Patient is a 32-year-old male that comes to the emergency department for chief complaint of possible exposure to an STD. Patient states that his significant other is symptomatic with pelvic discharge and there is concerned she might have contracted an STD with her prior relationship. Patient denies any current symptoms for himself, denies rash, dysuria, discharge, abdominal pain, fever, j oint pain. He denies any past medical history other than hernia repair, denies any other complaints. - EENT EENT: DENIES: Sore Throat - GASTROINTESTINAL Gastrointestinal: DENIES: Abdominal Pain - URINARY Urinary: DENIES: Dysuria - REPRODUCTIVE Reproductive: DENIES: : Past Medical History - General Information source: Patient - Social History Smoking Status: Former Smoker Frequency of alcohol use: Occasional Drug Abuse: None Lives with: Family Family History: DM, Hypertension, Malignancy Patient has suicidal ideation: No Patient has homicidal ideation: No - Past Medical History Cardiac Medical History: Denies: Hx Coronary Artery Disease, Hx Heart Attack, Hx Hypertension Pulmonary Medical History: Denies: Hx Asthma, Hx Bronchitis, Hx COPD, Hx Pneumonia Neurological Medical History: Denies: Hx Cerebrovascular Accident, Hx Seizures Renal/ Medical History: Denies: Hx Peritoneal Dialysis GI Medical History: Reports: Hx Gastroesophageal Reflux Disease, Hx Ulcer Musculoskeletal Medical History: Denies Hx Arthritis Skin Medical History: Reports Hx Cellulitis - Abscesses in the past Psychiatric Medical History: Reports: Hx Attention Deficit Hyperactivity Disorder, Hx Depression Past Surgical History: Reports: Hx Abdominal Surgery - L inguinal herniorrhaphy, Hx Inguinal Hernia, Hx Orthopedic Surgery - chin - Immunizations Immunizations up to date: Yes Hx Diphtheria, Pertussis, Tetanus Vaccination: No Vertical Provider Document - CONSTITUTIONAL General Appearance: WD/WN, No Apparent Distress - INFECTION CONTROL TRAVEL OUTSIDE OF THE [place] IN LAST 30 DAYS: No - HEENT HEENT: Atraumatic, Normal ENT Exam, Normocephalic - NECK Neck: Normal Inspection - RESPIRATORY Respiratory: Breath Sounds Normal, No Respiratory Distress - CARDIOVASCULAR Cardiovascular: Regular Rate, Regular Rhythm - GI/ABDOMEN Gastrointestinal: Abdomen Soft, Abdomen Non-Tender - REPRODUCTIVE Male Genitalia: Normal Inspection - No discharge, rash, swelling, tenderness, or other concerning findings noted. negative: Abnormal Inspection - BACK Back: Normal Inspection - MUSCULOSKELETAL/EXTREMETIES Musculoskeletal/Extremeties: SURAJ, FROM, Non-Tender - NEURO Level of Consciousness: Awake, Alert, Appropriate - DERM Integumentary: Warm, Dry, No Rash Course - Re-evaluation Re-evalutation: Physical examination unremarkable. Patient with no current symptoms. Patient requesting treatment for exposure, gonorrhea and chlamydia are pending but he is requesting treatment and discharge. He was provided with this. Discussed rec ommendations, precautions, return precautions. Patient states understanding and agreement. - Vital Signs Vital signs: Temp Pulse Resp BP Pulse Ox 97.7 F 85 20 115/70 94 07/21/18 03:43 07/21/18 03:43 07/21/18 03:43 07/21/18 03:43 07/21/18 03:43 Discharge - Discharge Clinical Impression: Possible exposure to STD Condition: Stable Disposition: HOME, SELF-CARE Additional Instructions: You have been covered for possible STD exposure. Avoid sexual intercourse for 7 days. Follow-up with primary care for additional evaluation and management. Return for any concerning symptoms including developing discharge, pain with urination, fever, abdominal pain, or any other concerning symptoms.
[2018-07-21 07:49] VITALS: BP 133/81
[2018-07-21 07:52] LABS: CHLAM PCR DETECTED (NOT DETECT); GON PCR NOT DETECTED (NOT DETECT)
== END 2018-07-21 07:40 | disposition home or self-care (01) ==
LOC: ER 03:34
DX: Z20.2 Contact with and (suspected) exposure to infections with a predominantly sexual mode of transmission (principal)
CPT/HCPCS: 99283; 96372; 87491; 87591; J3490; J0696

== ENCOUNTER 2018-10-03 17:54 | Emergency (ER) | payer OTHER ==
[2018-10-03] MEDS ORDERED: LIDOCAINE 2% VISCOUS SOLN 20 ML UDCUP PO ONE (19:51)
[2018-10-03] MEDS ORDERED: DEXAMETHASONE SOD PHOS INJ 10 MG/1 ML VIAL IM ONE (19:54)
[2018-10-03] MEDS ORDERED: KETOROLAC TROMETHAMINE 10 MG TABLET PO ONE (19:54)
--- NOTE | 2018-10-03 20:01 | ER Document Report ---
HPI - HPI Time Seen by Provider: 10/03/18 19:30 Pain Level: 4 Context: Patient is a 33-year-old male who presents to the emergency department with the chief complaint of mouth pain. Patient states he has had a canker sore to the inside of his left cheek for 3 to 4 days. Patient reports soda makes it worse. Patient he states he is tried oral mouthwash [id number] and mouthwash which seems to aggravate it. Patient denies dental pain. Patient reports a mild amount of swelling to the left facial area. Patient denies difficulty swallowing. Patient reports he has had these before but never this bad. Patient reports pain is worse when he attempts to eat and drink. - REPRODUCTIVE Reproductive: DENIES: : Past Medical History - General Information source: Patient - Social History Smoking Status: Former Smoker Chew tobacco use (# tins/day): No Frequency of alcohol use: Social Drug Abuse: None Lives with: Alone Family History: DM, Hypertension, Malignancy Patient has suicidal ideation: No Patient has homicidal ideation: No - Past Medical History Cardiac Medical History: Reports: None Denies: Hx Coronary Artery Disease, Hx Heart Attack, Hx Hypertension Pulmonary Medical History: Reports: None Denies: Hx Asthma, Hx Bronchitis, Hx COPD, Hx Pneumonia EENT Medical History: Reports: None Neurological Medical History: Reports: None. Denies: Hx Cerebrovascular Accident, Hx Seizures Endocrine Medical History: Reports: None Renal/ Medical History: Reports: None. Denies: Hx Peritoneal Dialysis Malignancy Medical History: Reports None GI Medical History: Reports: Hx Gastroesophageal Reflux Disease, Hx Ulcer Musculoskeletal Medical History: Reports None, Denies Hx Arthritis Skin Medical History: Reports Hx Cellulitis - Abscesses in the past Psychiatric Medical History: Reports: Hx Attention Deficit Hyperactivity Disorder, Hx Depression Traumatic Medical History: Reports: None Infectious Medical History: Reports: None Past Surgical History: Reports: Hx Abdominal Surgery - L inguinal herniorrhaphy, Hx Inguinal Hernia, Hx Orthopedic Surgery - chin - Immunizations Immunizations up to date: Yes Hx Diphtheria, Pertussis, Tetanus Vaccination: No Vertical Provider Document - CONSTITUTIONAL Agree With Documented VS: Yes Exam Limitations: No Limitations General Appearance: No Apparent Distress - INFECTION CONTROL TRAVEL OUTSIDE OF THE [place] IN LAST 30 DAYS: No - HEENT HEENT: Atraumatic, Normal ENT Exam, Normocephalic, PERRLA Notes: There is an ulcer noted to the left buccal area inside the mouth. I did palpate the inside of the mouth specifically around the ulcer and did not palpate an abscess. Patient is not having any dental pain with palpation. Patient has good dentition and no broken teeth. - RESPIRATORY Respiratory: Breath Sounds Normal, No Respiratory Distress - CARDIOVASCULAR Cardiovascular: Regular Rate, Regular Rhythm - GI/ABDOMEN Gastrointestinal: Abdomen Soft, Abdomen Non-Tender, Normal Bowel Sounds - NEURO Level of Consciousness: Awake, Alert, Appropriate - DERM Integumentary: Warm, Dry Course - Re-evaluation Re-evalutation: 10/03/18 20:40 Patient symptoms and physical examination are consistent with a canker sore to the left side of his mouth. There is no palpable abscess. Patient does have a very small amount of swelling to his left cheek. At this time I do not believe antibiotics are necessary. I did educate the patient to avoid spicy, acidic foods as this can exacerbate the symptoms and delay healing. I did inform the patient that they can take a few weeks for this to heal. Patient to return on strict precautions. I did inform the patient how to accurately use the viscous lidocaine. Patient denies questions. - Vital Signs Vital signs: Temp Pulse Resp BP Pulse Ox 98.1 F 78 16 123/72 96 10/03/18 18:05 10/03/18 18:05 10/03/18 18:05 10/03/18 18:05 10/03/18 18:05 Discharge - Discharge Clinical Impression: Aphthous ulcer of mouth Condition: Stable Disposition: HOME, SELF-CARE Additional Instructions: Today you were seen in the emergency department for a canker sore. I am prescribing you viscous lidocaine that you can swish in your mouth and spit every 3 hours as needed for pain. Do not swallow this. You can do this up to 8 times per day. Do not exceed this in a 24-hour period. Before you use the viscous lidocaine you can try an [id number] Orajel. Please refrain from smoking, eating acidic, spicy foods, soda or any other irritants as this can open the canker sore more and delay healing. Please return to the emergency department if you have any new or worsening symptoms such as swelling to the face, worsening pain that is not controlled, fever or any other concerning signs or symptoms. Prescriptions: Lidocaine HCl [Xylocaine 2% Viscous Soln 20 ml Udcup] 15 ml PO ASDIR PRN #5 [id number] PRN Reason: Forms: Smoking Cessation Education, Return to Work
[2018-10-03 20:39] VITALS: BP 133/93
== END 2018-10-03 20:38 | disposition home or self-care (01) ==
LOC: ER 17:54
DX: K12.0 Recurrent oral aphthae (principal); K08.89 Other specified disorders of teeth and supporting structures; R22.0 Localized swelling, mass and lump, head; Z87.891 Personal history of nicotine dependence
CPT/HCPCS: J3490 ×2; J1100; 99282

== ENCOUNTER 2018-10-20 12:43 | Emergency (ER) | payer OTHER ==
[2018-10-20] MEDS ORDERED: DOXYCYCLINE HYCLATE 100 MG TABLET PO ONE (13:30)
--- NOTE | 2018-10-20 13:36 | ER Document Report ---
HPI - HPI Patient complains to provider of: rash Time Seen by Provider: 10/20/18 13:17 Pain Level: 3 Context: Healthy well-appearing 33-year-old male presents the emergency department with rash on his bilateral forearms that is been going on intermittently for the past week. Patient states the skin eruption happened when he was out working in the [employer] for work. Patient states that there are other spots that are healing. Patient states that they are painful, and he has one over his left elbow that is causing pain to the joint. Patient states that he had a headache yesterday but overall has not had any fevers or chills. Patient denies any nausea or vomiting, nominal pain, generalized myalgias, denies any vision changes or stiff neck, no other significant issues. - CONSTITUTIONAL Constitutional: DENIES: Fever, Chills - REPRODUCTIVE Reproductive: DENIES: : Past Medical History - Social History Smoking Status: Never Smoker Chew tobacco use (# tins/day): No Frequency of alcohol use: Occasional Family History: DM, Hypertension, Malignancy Patient has suicidal ideation: No Patient has homicidal ideation: No - Past Medical History Cardiac Medical History: Denies: Hx Coronary Artery Disease, Hx Heart Attack, Hx Hypertension Pulmonary Medical History: Denies: Hx Asthma, Hx Bronchitis, Hx COPD, Hx Pneumonia Neurological Medical History: Denies: Hx Cerebrovascular Accident, Hx Seizures Renal/ Medical History: Denies: Hx Peritoneal Dialysis GI Medical History: Reports: Hx Gastroesophageal Reflux Disease, Hx Ulcer Musculoskeletal Medical History: Denies Hx Arthritis Skin Medical History: Reports Hx Cellulitis - Abscesses in the past Psychiatric Medical History: Reports: Hx Attention Deficit Hyperactivity D isorder, Hx Depression Past Surgical History: Reports: Hx Abdominal Surgery - L inguinal herniorrhaphy, Hx Inguinal Hernia, Hx Orthopedic Surgery - chin - Immunizations Immunizations up to date: Yes Hx Diphtheria, Pertussis, Tetanus Vaccination: No Vertical Provider Document - CONSTITUTIONAL Notes: PHYSICAL EXAMINATION: Reviewed vital signs and charting by RN GENERAL: Alert, interacts well. No acute distress. HEAD: Normocephalic, atraumatic. EYES: Pupils equal and round. Extraocular movements intact. ENT: Oral mucosa moist, tongue midline. NECK: Full range of motion. Trachea midline. EXTREMITIES: Moves all 4 extremities spontaneously. No edema, No cyanosis. PSYCH: Normal affect, normal mood. SKIN: Warm, dry, normal turgor. Several pustule-like lesions on the right dorsal forearm with mild surrounding erythema in various stages of healing, with 1 pustule lesion on his left lateral elbow, no active drainage - INFECTION CONTROL TRAVEL OUTSIDE OF THE [place] IN LAST 30 DAYS: No Course - Re-evaluation Re-evalutation: 10/20/18 13:36 Patient is well-appearing and in no acute distress, denies photophobia, neck stiffness, eyes fevers, did complain of headache. I am going to treat him with doxycycline and will obtain a [place] spotted fever titer. I have also sent a wound culture from a pustule on his right forearm. I explained to patient plan and that he will be covered for [place] spotted fever and for the skin/soft tissue infection. Patient understands plan, agrees with plan, and is stable for discharge with strict return precautions. - Vital Signs Vital signs: Temp Pulse Resp BP Pulse Ox 98.7 F 76 18 125/78 97 10/20/18 12:53 10/20/18 12:53 10/20/18 12:53 10/20/18 12:53 10/20/18 12:53 Discharge - Discharge Clinical Impression: Rash Condition: Good Disposition: HOME, SELF-CARE Additional Instructions: You were seen in the emergency department for a rash of unknown origin. We took a sample and we are sending it off for wound culture and we did a blood draw to ensure that you do not have [place] spotted fever. Either way, treatment for the skin rash is the same and you should take the doxycycline for 7 days in total. Please take it until it is gone. If the blood test is negative you will most likely not hear from the culture nurse but if it does come back positive you will get a phone call. If you develop high fevers, altered mental status or confusion, acute shortness of breath or chest pain, or the rash gets significantly worse over the next few days return to the emergency department for reevaluation.
[2018-10-20 14:24] VITALS: BP 122/76
[2018-10-23 06:59] LABS: ROCKY MTN SPOTTED FEVER IGM AB 0.41 index (0.00-0.89)
[2018-10-24 07:15] LABS: ROCKY MTN SPOTTED FEV IGG EIA Positive (Negative)
== END 2018-10-20 14:00 | disposition home or self-care (01) ==
LOC: ER 12:43
DX: R21 Rash and other nonspecific skin eruption (principal); L08.9 Local infection of the skin and subcutaneous tissue, unspecified; M25.522 Pain in left elbow; R51 Headache
CPT/HCPCS: 36415; 86757; 87070; 87077; 87186; 87205; 99283

== ENCOUNTER 2018-12-05 18:04 | Emergency (ER) | payer OTHER ==
--- NOTE | 2018-12-05 19:25 | ER Document Report ---
ED Medical Screen (RME) - General Chief Complaint: Skin Problem Stated Complaint: POSSIBLE ABSCESS Time Seen by Provider: 12/05/18 19:23 Mode of Arrival: Ambulatory Information source: Patient Notes: Patient presents complaining of skin infection to the abdomen and right thigh. Patient states is possible he may have been bit by a spider but does have a history of MRSA. Patient denies any fever. I have greeted and performed a rapid initial assessment of this patient. A comprehensive ED assessment and evaluation of the patient, analysis of test results and completion of the medical decision making process will be conducted by additional ED providers. TRAVEL OUTSIDE OF THE [place] IN LAST 30 DAYS: No - Related Data Allergies/Adverse Reactions: amoxicillin [Amoxicillin] Allergy (Verified 07/21/18 04:57) Hives, Migraine diphenhydramine HCl [From Benadryl] Allergy (Verified 07/21/18 04:57) Hives, Migraine Past Medical History - Past Medical History Cardiac Medical History: Denies: Hx Coronary Artery Disease, Hx Heart Attack, Hx Hypertension Pulmonary Medical History: Denies: Hx Asthma, Hx Bronchitis, Hx COPD, Hx Pneumonia Neurological Medical History: Denies: Hx Cerebrovascular Accident, Hx Seizures Renal/ Medical History: Denies: Hx Peritoneal Dialysis GI Medical History: Reports: Hx Gastroesophageal Reflux Disease, Hx Ulcer Musculoskeltal Medical History: Denies Hx Arthritis Skin Medical History: Reports Hx Cellulitis - Abscesses in the past Psychiatric Medical History: Reports: Hx Attention Deficit Hyperactivity Disorder, Hx Depression Past Surgical History: Reports: Hx Abdominal Surgery - L inguinal herniorrhaphy, Hx Inguinal Hernia, Hx Orthopedic Surgery - chin - Immunizations Immunizations up to date: Yes Hx Diphtheria, Pertussis, Tetanus Vaccination: No Physical Exam - Vital signs Vitals: Temp Pulse Resp BP Pulse Ox 98.6 F 89 18 129/69 H 97 12/05/18 18:19 12/05/18 18:19 12/05/18 18:19 12/05/18 18:19 12/05/18 18:19 - General General appearance: Appears well, Alert Notes: Multiple small lesions to abdomen that are erythematous with a tender indurated area worrisome for abscess with surrounding cellulitis Course - Vital Signs Vital signs: Temp Pulse Resp BP Pulse Ox 98.6 F 89 18 129/69 H 97 12/05/18 18:19 12/05/18 18:19 12/05/18 18:19 12/05/18 18:19 12/05/18 18:19
--- NOTE | 2018-12-05 22:59 | ER Document Report ---
ED Skin Rash/Insect Bite/Abscs - General Chief Complaint: Abscess Stated Complaint: POSSIBLE ABSCESS Time Seen by Provider: 12/05/18 19:23 Mode of Arrival: Ambulatory Notes: Patient is a 33 year old male that comes to the Emergency Department for a tender, red, swollen area that developed over his right mid to lower abdomen. Patient states that he also has 2 other red areas that are similar but have not developed. Patient does admit that he shaves the area over the abdomen. He states he has had abscesses before in the past and has been told that he had MRSA in the past as well. He denies fever/chills, IV drug abuse, or any other complaints. TRAVEL OUTSIDE OF THE [place] IN LAST 30 DAYS: No - Related Data Allergies/Adverse Reactions: amoxicillin [Amoxicillin] Allergy (Verified 12/05/18 19:28) Hives, Migraine diphenhydramine HCl [From Benadryl] Allergy (Verified 12/05/18 19:28) Hives, Migraine Past Medical History - General Information source: Patient - Social History Smoking Status: Never Smoker Chew tobacco use (# tins/day): No Frequency of alcohol use: Occasional Drug Abuse: None Lives with: Family Family History: DM, Hypertension, Malignancy Patient has suicidal ideation: No Patient has homicidal ideation: No - Past Medical History Cardiac Medical History: Denies: Hx Coronary Artery Disease, Hx Heart Attack, Hx Hypertension Pulmonary Medical History: Denies: Hx Asthma, Hx Bronchitis, Hx COPD, Hx Pneumonia Neurological Medical History: Denies: Hx Cerebrovascular Accident, Hx Seizures Renal/ Medical History: Denies: Hx Peritoneal Dialysis GI Medical History: Reports: Hx Gastroesophageal Reflux Disease, Hx Ulcer Musculoskeletal Medical History: Denies Hx Arthritis Skin Medical History: Reports Hx Cellulitis - Abscesses in the past Psychiatric Medical History: Reports: Hx Attention Deficit Hyperactivity Disorder, Hx Depression Past Surgical History: Reports: Hx Abdominal Surgery - L inguinal herniorrhaphy, Hx Inguinal Hernia, Hx Orthopedic Surgery - chin - Immunizations Immunizations up to date: Yes Hx Diphtheria, Pertussis, Tetanus Vaccination: No Review of Systems - Review of Systems Constitutional: No symptoms reported EENT: No symptoms reported Cardiovascular: No symptoms reported Respiratory: No symptoms reported Gastrointestinal: See HPI Genitourinary: No symptoms reported Male Genitourinary: No symptoms reported Musculoskeletal: No symptoms reported Skin: See HPI Hematologic/Lymphatic: No symptoms reported Neurological/Psychological: No symptoms reported Physical Exam - Vital signs Vitals: Temp Pulse Resp BP Pulse Ox 98.6 F 89 18 129/69 H 97 12/05/18 18:19 12/05/18 18:19 12/05/18 18:19 12/05/18 18:19 12/05/18 18:19 - Notes Notes: GENERAL: Alert, interacts well. No acute distress. HEAD: Normocephalic, atraumatic. EYES: Pupils equal, round, and reactive to light. Extraocular movements intact. ENT: Oral mucosa moist, tongue midline. Oropharynx unremarkable. Airway patent NECK: Full range of motion. Supple. Trachea midline. LUNGS: Clear to auscultation bilaterally, no wheezes, rales, or rhonchi. No respiratory distress. HEART: Regular rate and rhythm. No murmur ABDOMEN: Soft, non-tender. Non-distended. Bowel sounds present in all 4 quadrants. GENITOURINARY: Deferred EXTREMITIES: Moves all 4 extremities spontaneously. No edema, normal radial and dorsalis pedis pulses bilaterally. No cyanosis. BACK: no cervical, thoracic, lumbar midline tenderness. No saddle anesthesia, normal distal neurovascular exam. Moves all extremities in full range of motion. NEUROLOGICAL: Alert and oriented x3. Normal speech. Cranial nerves II through XII grossly intact. PSYCH: Normal affect, normal mood. SKIN: Right abdomen below and to the right of the umbilicus with an indurated, fluctuant area with surrounding erythema and tenderness. Abdominal exam is completely unremarkable otherwise. Course - Re-evaluation Re-evalutation: Patient has the appearance of recently shaved hair over the area on the abdomen where he has the abscess, patient admits to recent shaving. This most most likely the cause initially. Patient does have an abscess with surrounding cellulitis. This was numbed, cleaned, and drained with excellent results. Starting on antibiotics, discussed follow-up and return precautions. Patient states understanding and agreement. - Vital Signs Vital signs: Temp Pulse Resp BP Pulse Ox 98.1 F 73 16 137/88 H 93 12/05/18 23:26 12/05/18 23:26 12/05/18 23:26 12/05/18 23:26 12/05/18 23:26 Procedures - Incision and Drainage Right mid abdomen Type: Single Anesthetic type: 1% Lidocaine mL's of anesthetic: 7 Blade size: 11 I&D procedure: Shurclens applied, Sterile dressing applied Incision Method: Incision made by scalpel Amount/type of drainage: About 5 cc of purulent drainage Discharge - Discharge Clinical Impression: Abscess Condition: Stable Disposition: HOME, SELF-CARE Additional Instructions: Your exam indicates an abscess with surrounding cellulitis (skin infection). The abscess has been drained, clean the area with soap and water, keep absorbing dressing over the area. Take antibiotics as prescribed. In the future I recommend avoid shaving the area. Follow-up with primary care. Come back if you are worse including spreading redness, fever/chills, nausea/vomiting, or any other concerning or worsening symptoms. Prescriptions: Sulfamethoxazole/Trimethoprim [Bactrim Ds Tablet] 1 each PO BID #14 tablet Cephalexin Monohydrate [Keflex 500 mg Capsule] 500 mg PO QID #28 capsule Forms: Return to Work
[2018-12-05] MEDS ORDERED: OXYCODONE-ACETAMINOPHEN 5-325 MG TABLET PO ONE (23:17)
[2018-12-05] MEDS ORDERED: ONDANSETRON 4 MG TAB.RAPDIS PO ONE (23:17)
[2018-12-05] MEDS ORDERED: CEPHALEXIN 500 MG CAPSULE PO ONE (23:17)
[2018-12-05] MEDS ORDERED: SULFAMETHOXAZOLE/TRIMETHOPRIM 800-160 MG TABLET PO ONE (23:17)
[2018-12-05 23:28] VITALS: BP 137/88
== END 2018-12-05 23:41 | disposition home or self-care (01) ==
LOC: ER 18:04
DX: L02.211 Cutaneous abscess of abdominal wall (principal); L03.311 Cellulitis of abdominal wall; Z86.14 Personal history of Methicillin resistant Staphylococcus aureus infection; Z88.0 Allergy status to penicillin; Z88.8 Allergy status to other drugs, medicaments and biological substances
CPT/HCPCS: 10060; S0119; 99282